=== PATIENT | male | born 1930 | race Caucasian/White ===

== ENCOUNTER 2020-03-23 11:21 | Inpatient (IN) ==
[2020-03-23 11:48] LABS: Basophils % 0.3 %; Eosinophils % 0.1 %; Hematocrit 31.1 % (37.5-50.1); Hemoglobin 10.2 g/dL (12.9-16.9); Immature Granulocytes % 0.8 % (0-4); Lymphocytes # 0.3 K/mcL (0.6-4.6); Lymphocytes % 3.6 %; Mean Corpuscular HGB Conc 32.8 g/dL (31.6-35.5); Mean Corpuscular Hemoglobin 32.5 pg (28.0-33.3); Monocytes # 0.7 K/mcL (0.0-1.3); Monocytes % 7.1 %; Neutrophils # 8.4 K/mcL (1.6-8.9); Platelet Count 218 K/mcL (140-400); Red Blood Count 3.14 M/mcL (4.19-5.50); Segmented Neutrophils % 88.1 %; White Blood Count 9.5 K/mcL (4.3-11.1)
[2020-03-23 12:09] LABS: Calcium 8.4 mg/dL (8.6-10.3); Potassium 4.2 mEq/L (3.5-5.1)
[2020-03-23] MEDS ORDERED: Dexamethasone 4 MG/ML VIAL IVP ONE (12:11)
[2020-03-23 12:12] LABS: Troponin I 0.04 ng/mL (< 0.04)
[2020-03-23] MEDS ORDERED: 0.9 % Sodium Chloride 500 ML IVC ONE (13:01)
[2020-03-23] MEDS ORDERED: Ondansetron 4 MG/2 ML VIAL IVP PRN (13:31)
[2020-03-23] MEDS ORDERED: Acetaminophen 325 MG TABLET PO PRN (13:31)
[2020-03-23 14:15] LABS: INR 1.4; Prothrombin Time 16.2 Seconds (9.4-12.1)
[2020-03-23 15:14] LABS: Albumin 3.1 g/dL (3.5-5.7); Albumin/Globulin Ratio 0.9 (1.1-2.2); Bilirubin,Direct 0.1 mg/dL (0.0-0.2); Bilirubin,Indirect 0.5 mg/dL (0.0-1.0); Bilirubin,Total 0.6 mg/dL (0.3-1.0); Globulin 3.3 g/dL (2.4-3.5); Total Protein 6.4 g/dL (6.4-8.9)
[2020-03-23] MEDS ORDERED: *HR* Heparin 5,000 UNIT/ML VIAL SQ SCH (16:00)
[2020-03-23] MEDS ORDERED: *HR* Heparin 5,000 UNIT/ML VIAL IVP PRN ×2 (16:53)
[2020-03-23] MEDS ORDERED: *HR* Heparin 5,000 UNIT/ML VIAL IVP ONE (16:53)
[2020-03-23] MEDS ORDERED: Piperacillin/Tazobactam 3.375 GM in 0.9 % Sodium Chloride Mini Bag 100 ML IVPB ONE (16:55)
[2020-03-23] MEDS: Heparin 25,000UNIT/250ML 1/2NS 25,000 UNIT/250 ML IV.SOLN IVC SCH (19:51)
[2020-03-23] MEDS ORDERED: *HR* Metoprolol 5 MG/5 ML VIAL IVP PRN (20:47)
[2020-03-23] MEDS ORDERED: Ringers Solution, Lactated 500 ML IVC ONE ×2 (22:12→23:58)
[2020-03-24] MEDS: Piperacillin/Tazobactam 3.375 GM in 0.9 % Sodium Chloride Mini Bag 100 ML IVPB SCH ×3 (01:11→16:46)
[2020-03-24 05:44] LABS: Hematocrit 32.8 % (37.5-50.1); Hemoglobin 10.7 g/dL (12.9-16.9); Mean Corpuscular HGB Conc 32.6 g/dL (31.6-35.5); Mean Corpuscular Hemoglobin 32.6 pg (28.0-33.3); Mean Platelet Volume 10.5 fL (9.4-12.4); Platelet Count 248 K/mcL (140-400); Red Blood Count 3.28 M/mcL (4.19-5.50)
[2020-03-24 05:45] LABS: White Blood Count 16.1 K/mcL (4.3-11.1)
[2020-03-24 05:49] LABS: INR 1.3; Prothrombin Time 14.9 Seconds (9.4-12.1)
[2020-03-24 06:09] LABS: Calcium 8.5 mg/dL (8.6-10.3); Magnesium 2.6 mg/dL (1.6-2.6); Potassium 4.9 mEq/L (3.5-5.1)
[2020-03-24] MEDS ORDERED: *HR* Metoprolol 5 MG/5 ML VIAL IVP PRN (08:14)
[2020-03-24] MEDS: Aspirin Enteric Coated 81 MG Tablet PO SCH (08:58)
[2020-03-24] MEDS: Finasteride 5 MG TABLET PO SCH (08:58)
[2020-03-24] MEDS ORDERED: Dexamethasone 4 MG/ML VIAL IVP SCH (09:00)
[2020-03-24 09:15] LABS: Sodium, Urine 41.4 mEq/L
[2020-03-24 09:22] LABS: Bilirubin,Urine Negative (Negative); Blood,Urine Large (Negative); Clarity,Urine Turbid (Clear); Color,Urine Yellow (Yellow); Glucose,Urine (UA) Normal (Normal); Ketones,Urine Negative (Negative); Leukocyte Esterase,Urine Negative (Negative); Mucus,Urine Few per lpf (None-Few); Nitrite,Urine Negative (Negative); PH,Urine 5.5 pH Units (5.0-8.0); Protein,Urine 50 mg/dL (Neg-Trace); RBC,Urine 0-3 per hpf (0-3); Specific Gravity,Urine 1.019 (1.010-1.025); Urobilinogen,Urine Normal (Normal); WBC,Urine 0-3 per hpf (0-3)
[2020-03-24] MEDS ORDERED: Dexamethasone Sodium Phos/PF 10 MG/ML VIAL IVP ONE (12:23)
[2020-03-24] MEDS: Heparin 25,000UNIT/250ML 1/2NS 25,000 UNIT/250 ML IV.SOLN IVC SCH (18:56)
[2020-03-24] MEDS: QUEtiapine Fumarate 25 MG TABLET PO SCH (20:31)
[2020-03-24] MEDS: Temazepam 15 MG CAPSULE PO SCH (20:31)
[2020-03-24] MEDS ORDERED: 0.9 % Sodium Chloride 500 ML ONE (22:26)
[2020-03-25] MEDS: Piperacillin/Tazobactam 3.375 GM in 0.9 % Sodium Chloride Mini Bag 100 ML IVPB SCH ×3 (00:29→19:58)
[2020-03-25] MEDS ORDERED: *HR* LORazepam 2 MG/ML VIAL ONE (04:44)
[2020-03-25] MEDS ORDERED: *HR* LORazepam 2 MG/ML VIAL IVP ONE (04:47)
[2020-03-25] MEDS: *HR* LORazepam 2 MG/ML VIAL IVP PRN ×2 (05:27→08:26)
[2020-03-25] MEDS: Finasteride 5 MG TABLET PO SCH (08:26)
[2020-03-25] MEDS: Aspirin Enteric Coated 81 MG Tablet PO SCH (08:26)
[2020-03-25] MEDS: Dexamethasone Sodium Phos/PF 10 MG/ML VIAL IVP SCH (08:27)
[2020-03-25 10:21] LABS: Calcium 8.4 mg/dL (8.6-10.3); Potassium 4.8 mEq/L (3.5-5.1)
[2020-03-25] MEDS ORDERED: 0.9 % Sodium Chloride 1,000 ML IVC ONE (12:49)
[2020-03-25] MEDS: Heparin 25,000UNIT/250ML 1/2NS 25,000 UNIT/250 ML IV.SOLN IVC SCH (16:12)
[2020-03-25] MEDS: Temazepam 15 MG CAPSULE PO SCH (19:56)
[2020-03-25] MEDS: QUEtiapine Fumarate 25 MG TABLET PO SCH (19:57)
[2020-03-26] MEDS: Finasteride 5 MG TABLET PO SCH (07:56)
[2020-03-26] MEDS: Aspirin Enteric Coated 81 MG Tablet PO SCH (07:56)
[2020-03-26] MEDS: Dexamethasone Sodium Phos/PF 10 MG/ML VIAL IVP SCH (07:57)
[2020-03-26] MEDS: Piperacillin/Tazobactam 3.375 GM in 0.9 % Sodium Chloride Mini Bag 100 ML IVPB SCH ×2 (07:57→20:45)
[2020-03-26] MEDS ORDERED: 0.9 % Sodium Chloride 1,000 ML IVC SCH (08:15)
[2020-03-26 10:10] LABS: Calcium 8.3 mg/dL (8.6-10.3); Potassium 5.1 mEq/L (3.5-5.1)
[2020-03-26] MEDS ORDERED: Sodium Bicarbonate 150 MEQ in Water for inj. (sterile) 1,000 ML IVC SCH (10:45)
[2020-03-26] MEDS: Sodium Bicarbonate 75 MEQ in 0.45 % Sodium Chloride 1,000 ML IVC SCH ×2 (12:16→20:49)
[2020-03-26] MEDS: Heparin 25,000UNIT/250ML 1/2NS 25,000 UNIT/250 ML IV.SOLN IVC SCH (14:05)
[2020-03-26] MEDS: Temazepam 15 MG CAPSULE PO SCH (20:44)
[2020-03-26] MEDS: QUEtiapine Fumarate 25 MG TABLET PO SCH (20:45)
[2020-03-27 04:25] LABS: Basophils # 0.1 K/mcL (0.0-0.2); Basophils % 0.4 %; Hematocrit 33.2 % (37.5-50.1); Immature Granulocytes % 4.5 % (0-4); Lymphocytes # 0.6 K/mcL (0.6-4.6); Lymphocytes % 3.5 %; Mean Corpuscular HGB Conc 33.1 g/dL (31.6-35.5); Mean Corpuscular Hemoglobin 31.9 pg (28.0-33.3); Mean Corpuscular Volume 96.2 fL (83.0-100.0); Mean Platelet Volume 11.1 fL (9.4-12.4); Monocytes # 0.8 K/mcL (0.0-1.3); Monocytes % 4.3 %; Neutrophils # 16.2 K/mcL (1.6-8.9); Nucleated Red Blood Cells 0.1 /100 WBC (0); Platelet Count 270 K/mcL (140-400); Red Blood Count 3.45 M/mcL (4.19-5.50); Red Cell Distribution Width 13.5 % (11.5-14.5); Segmented Neutrophils % 87.3 %; White Blood Count 18.5 K/mcL (4.3-11.1)
[2020-03-27 04:44] LABS: Albumin 2.6 g/dL (3.5-5.7); Calcium 7.7 mg/dL (8.6-10.3); Magnesium 2.8 mg/dL (1.6-2.6); Phosphorous 5.5 mg/dL (2.7-4.5); Potassium 4.8 mEq/L (3.5-5.1)
[2020-03-27] MEDS: Aspirin Enteric Coated 81 MG Tablet PO SCH (07:53)
[2020-03-27] MEDS: Piperacillin/Tazobactam 3.375 GM in 0.9 % Sodium Chloride Mini Bag 100 ML IVPB SCH ×2 (07:53→20:54)
[2020-03-27] MEDS: Dexamethasone Sodium Phos/PF 10 MG/ML VIAL IVP SCH (07:53)
[2020-03-27] MEDS: Finasteride 5 MG TABLET PO SCH (07:53)
[2020-03-27] MEDS: Heparin 25,000UNIT/250ML 1/2NS 25,000 UNIT/250 ML IV.SOLN IVC SCH (13:42)
[2020-03-27] MEDS: QUEtiapine Fumarate 25 MG TABLET PO SCH (20:55)
[2020-03-27] MEDS: Temazepam 15 MG CAPSULE PO SCH (20:55)
[2020-03-28] MEDS ORDERED: Haloperidol Lactate 5 MG/ML VIAL IM ONE (02:13)
[2020-03-28] MEDS: Heparin 25,000UNIT/250ML 1/2NS 25,000 UNIT/250 ML IV.SOLN IVC SCH ×2 (02:21→13:28)
[2020-03-28] MEDS ORDERED: *HR* LORazepam 2 MG/ML VIAL IVP ONE (02:51)
[2020-03-28 03:38] LABS: Potassium 4.7 mEq/L (3.5-5.1)
[2020-03-28] MEDS: Finasteride 5 MG TABLET PO SCH (07:58)
[2020-03-28] MEDS: Aspirin Enteric Coated 81 MG Tablet PO SCH (07:58)
[2020-03-28] MEDS: Piperacillin/Tazobactam 3.375 GM in 0.9 % Sodium Chloride Mini Bag 100 ML IVPB SCH ×2 (07:59→20:58)
[2020-03-28] MEDS: Dexamethasone Sodium Phos/PF 10 MG/ML VIAL IVP SCH (07:59)
[2020-03-28] MEDS ORDERED: *HR* LORazepam 2 MG/ML VIAL IVP PRN (09:02)
[2020-03-28] MEDS: Dexmedetomidine HCl 400 MCG/100 ML MLS IVC SCH ×2 (09:13→18:44)
[2020-03-28] MEDS: QUEtiapine Fumarate 25 MG TABLET PO SCH (20:59)
[2020-03-28] MEDS: Temazepam 15 MG CAPSULE PO SCH (20:59)
[2020-03-29] MEDS: Dexmedetomidine HCl 400 MCG/100 ML MLS IVC SCH ×2 (05:29→17:30)
[2020-03-29 06:41] LABS: Heparin anti-factor XA UFH 0.53 IU/mL (0.30-0.70)
[2020-03-29 06:49] LABS: Calcium 8.3 mg/dL (8.6-10.3); Potassium 5.2 mEq/L (3.5-5.1)
[2020-03-29] MEDS: Aspirin Enteric Coated 81 MG Tablet PO SCH (07:56)
[2020-03-29] MEDS: Finasteride 5 MG TABLET PO SCH (07:56)
[2020-03-29] MEDS: Piperacillin/Tazobactam 3.375 GM in 0.9 % Sodium Chloride Mini Bag 100 ML IVPB SCH ×2 (07:56→20:40)
[2020-03-29] MEDS: Dexamethasone Sodium Phos/PF 10 MG/ML VIAL IVP SCH (07:58)
[2020-03-29] MEDS ORDERED: D5% in Water 1,000 ML IVC SCH (08:45)
[2020-03-29] MEDS: Heparin 25,000UNIT/250ML 1/2NS 25,000 UNIT/250 ML IV.SOLN IVC SCH (14:14)
[2020-03-29 16:56] LABS: Calcium 8.3 mg/dL (8.6-10.3)
[2020-03-29] MEDS: Temazepam 15 MG CAPSULE PO SCH (20:39)
[2020-03-29] MEDS: QUEtiapine Fumarate 25 MG TABLET PO SCH (20:39)
[2020-03-30] MEDS: Dexmedetomidine HCl 400 MCG/100 ML MLS IVC SCH (03:37)
[2020-03-30] MEDS: Finasteride 5 MG TABLET PO SCH (09:08)
[2020-03-30] MEDS: Dexamethasone Sodium Phos/PF 10 MG/ML VIAL IVP SCH (09:09)
[2020-03-30] MEDS: Piperacillin/Tazobactam 3.375 GM in 0.9 % Sodium Chloride Mini Bag 100 ML IVPB SCH (09:09)
[2020-03-30] MEDS: Aspirin Enteric Coated 81 MG Tablet PO SCH (09:09)
[2020-03-30 09:34] LABS: Hematocrit 35.8 % (37.5-50.1); Hemoglobin 11.1 g/dL (12.9-16.9); Mean Corpuscular Hemoglobin 29.6 pg (28.0-33.3); Mean Corpuscular Volume 95.5 fL (83.0-100.0); Mean Platelet Volume 10.3 fL (9.4-12.4); Platelet Count 323 K/mcL (140-400); Red Blood Count 3.75 M/mcL (4.19-5.50); Red Cell Distribution Width 13.7 % (11.5-14.5); White Blood Count 14.8 K/mcL (4.3-11.1)
[2020-03-30 09:35] LABS: VBG HCO3 25 mEq/L (21-27); VBG PCO2 53 mmHg (41-51); VBG PH 7.28 pH Units (7.32-7.42); VBG PO2 86 mmHg (25-50)
[2020-03-30 09:51] LABS: Magnesium 2.4 mg/dL (1.6-2.6); Phosphorous 3.7 mg/dL (2.7-4.5)
[2020-03-30 09:53] LABS: Calcium 8.4 mg/dL (8.6-10.3); Potassium 4.6 mEq/L (3.5-5.1)
[2020-03-30] MEDS: *HR* FentaNYL (PF) 100 MCG/2 ML VIAL IVP PRN ×3 (12:22→14:25)
[2020-03-30] MEDS: *HR* LORazepam 2 MG/ML VIAL IVP PRN ×2 (12:24→14:25)
[2020-03-30] MEDS ORDERED: Haloperidol Lactate 5 MG/ML VIAL IVP PRN (15:05)
[2020-03-30] MEDS: FentaNYL (PF) 1,000 MCG/100 ML IV.SOLN IVC SCH (16:26)
[2020-03-31] MEDS: QUEtiapine Fumarate 25 MG TABLET PO SCH (01:35)
[2020-03-31] MEDS: Temazepam 15 MG CAPSULE PO SCH (01:35)
[2020-03-31] MEDS: FentaNYL (PF) 1,000 MCG/100 ML IV.SOLN IVC SCH (02:32)
[2020-03-31] MEDS: Finasteride 5 MG TABLET PO SCH (08:16)
[2020-03-31 08:28] VITALS: BP 90/38
== END 2020-03-31 09:35 | disposition expired | DRG 871 ==
LOC: 2NENU 11:21 → EMEROOARM 11:21 → SUATTDRO 14:12 → 2NENU 15:07
PROVIDERS: ADMIT Internal Medicine; ATTEND Family Medicine